=== PATIENT | female | born 1965 | race Caucasian/White ===

== ENCOUNTER 2016-12-04 07:52 | Emergency (ER) | payer OTHER ==
[~2016-12-04] VITALS: Ht 165.1 cm; Wt 72.0 kg
[~2016-12-04 07:52] MED LIST: AC500T PO; FLUO90CA4 PO; HYDR-3702 PO; IBP800T PO; OMEP20CA12 PO; SUCR1TAB29 PO; ZOLP12.5 PO
--- OUTSIDE RECORDS SUMMARY | 2016-12-04 07:57 | XMS REPORT | Summary of Care ---
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 Medications Name Dates Details Ambien CR 12.5 MG Oral Tablet Extended Release alt with melatonn Refills: 0 Started 01-Sep-2010 ActiveJolessa 0.15-0.03 MG Oral Tablet Refills: 0 Started 01-Sep-2010 ActiveFLUoxetine HCl - 20 MG Oral Capsule Refills: 0 Started 01-Sep-2010 ActiveMelatonin 3 MG Oral Tablet alt with zolpidem Refills: 0 Started Active Allergies and Adverse Reactions Name Dates Details Penicillins Status: Active Procedures Procedure Dates Details Gallbladder Surgery Hysterectomy Procedures not documented Immunization Name Dates Details Immunizations not documented Family History Sister Name Dates Details Family history of sleep apnea (V19.8, Z84.89) Status: Active Family history of chronic obstructive pulmonary disease (V17.6, Z82.5) Status: Active Family history of lung cancer (V16.1, Z80.1) Status: Active Social History Name Dates Details Former smoker (V15.82, Z87.891) Smoking StatusFormer smoker Vital Signs Date Test Result Details 15:24 BP Systolic 119 mm[Hg] Status: BP Diastolic 65 mm[Hg] Status: Heart Rate 69 /min Status: Weight 140 lb Status: Height 65 in Status: O2 SAT 99 % Status: Body Mass Index Calculated 23.3 kg/m2 Status: Body Surface Area Calculated 1.7 Status: Results Date Description Value Details Results not documented Plan of Care InstructionsInstructions not documentedPlanned Observations Name Dates Details Planned Goals not documented Goal Instructions No Known Instructions Encounters Appointment; Gustavo Long Encounter Diagnosis: Problem not documented On 15:30
[2016-12-04] MEDS ORDERED: SODIUM CHLORIDE FLUSH 10 ML SYR IV PRN (08:25)
[2016-12-04] MEDS ORDERED: ONDANSETRON 2 MG/ML (Z0FRAN) 2 ML VIAL IV ONE ×2 (08:25→10:05)
[2016-12-04] MEDS ORDERED: SODIUM CHLORIDE FLUSH 3 ML SYR IV PRN (08:25)
[2016-12-04 08:31] LABS: BASOPHILS % (AUTO) 0 % (0-2); EOSINOPHILS # (AUTO) 0.1 10^3uL; EOSINOPHILS % (AUTO) 2 % (0-4); LYMPHOCYTES # (AUTO) 2.5 X10^3; MEAN CORPUSCULAR HEMOGLOBIN 28.6 PG (26.0-34.0); MEAN CORPUSCULAR HGB CONC 33.7 g/dL (31.0-37.0); MEAN CORPUSCULAR VOLUME 85 FL (80-100); MEAN PLATELET VOLUME 9.3 FL (6.0-9.5); MONOCYTES # (AUTO) 0.5 X10^3; MONOCYTES % (AUTO) 9 % (3-11); NEUTROPHILS % (AUTO) 49 % (51-67); PLATELET COUNT 280 10^3uL (150-450)
[2016-12-04 08:42] LABS: ALBUMIN 4.4 g/dL (3.4-5.0); ANION GAP 16.5 MEQ/L (3-15); CALCULATED IONIZED CALCIUM 3.8 mg/dL (3.8-4.6); TOTAL PROTEIN 7.9 g/dL (6.4-8.5)
[2016-12-04 08:57] LABS: BILIRUBIN,URINE Negative (Negative); CLARITY,URINE Clear; COLOR,URINE Yellow; GLUCOSE, URINE (UA) Negative (Negative); LEUKOCYTE ESTERASE ,URINE Negative (Negative); PH,URINE 6.5 (5.0 - 8.0); UROBILINOGEN,URINE 0.2 mg/dL (0.2-1.0)
[2016-12-04] MEDS ORDERED: ONDA4TAB8 PO (10:40)
[2016-12-04 10:50] VITALS: BP 106/69
== END 2016-12-04 11:10 | disposition home or self-care (01) ==
LOC: ED 07:54
DX: A09 Infectious gastroenteritis and colitis, unspecified (principal)
CPT/HCPCS: 36415; 80053; 81003; 82150; 82274; 83690; 85025; 86140; 87045; 87324; 87449; 89055; 96361; 96374; 96376; 99284; J2405; J7030; 87046; 99283